=== PATIENT | male | born 1995 | race Caucasian/White ===

== ENCOUNTER 2017-09-06 17:23 | Emergency (ER) | payer MEDICAID, OTHER ==
[~2017-09-06] VITALS: Ht 188 cm; Wt 90.0 kg
[~2017-09-06 17:23] MED LIST: ONDA4TAB6 PO
[2017-09-06 17:33] VITALS: BP 114/61
== END 2017-09-06 22:45 | disposition left against medical advice (07) ==
LOC: ER 17:23
DX: M54.9 Dorsalgia, unspecified (principal); Z53.21 Procedure and treatment not carried out due to patient leaving prior to being seen by health care provider

== ENCOUNTER 2017-11-18 03:37 | Emergency (ER) | payer MEDICAID ==
[~2017-11-18] VITALS: Ht 188 cm; Wt 113.5 kg
[2017-11-18 03:42] VITALS: BP 163/98
[2017-11-18] MEDS ORDERED: CLIN300C3 PO (04:16)
== END 2017-11-18 04:20 | disposition home or self-care (01) ==
LOC: ER 03:38
DX: L73.8 Other specified follicular disorders (principal); F12.10 Cannabis abuse, uncomplicated; F17.200 Nicotine dependence, unspecified, uncomplicated; Z88.2 Allergy status to sulfonamides
CPT/HCPCS: 99283

== ENCOUNTER 2018-04-21 12:09 | Emergency (ER) | payer MEDICAID ==
[~2018-04-21] VITALS: Ht 188 cm; Wt 85.0 kg
[2018-04-21] MEDS ORDERED: normal saline 1000ML IV soln IVB ONE ×2 (12:50)
[2018-04-21] MEDS ORDERED: ondansetron/PF 4mg/2ml inj IV ONE (12:50)
[2018-04-21 13:24] LABS: ALANINE AMINOTRANSFERASE 43 U/L (12-78); ALBUMIN 4.2 G/DL (3.4-5.0); ALBUMIN/GLOBULIN RATIO 1.1 (1.1-1.5); ALKALINE PHOSPHATASE 75 IU/L (46-116); ANION GAP 10 (8-16); ASPARTATE AMINO TRANSFERASE 27 U/L (10-37); BILIRUBIN,TOTAL 0.6 MG/DL (0.1-1.0); BLOOD UREA NITROGEN 12 MG/DL (7-18); BUN/CREATININE RATIO 10.8 (5.4-32.0); CHLORIDE 101 MMOL/L (99-107); CREATININE 1.11 MG/DL (0.60-1.10); GLUCOSE 97 MG/DL (70-104); LIPASE 69 U/L (73-393); POTASSIUM 3.7 MMOL/L (3.5-5.1); SODIUM 137 MMOL/L (135-145); TOTAL CARBON DIOXIDE 25.8 MMOL/L (24-32); eGFR 82 ML/MIN
[2018-04-21] MEDS ORDERED: morphine 2 MG/ML inj. syringe IV ONE (13:35)
[2018-04-21 13:38] LABS: BASOPHILS # (AUTO) 0.1 X10'3 (0-0.2); BASOPHILS % (AUTO) 0.4 % (0-1); EOSINOPHILS # (AUTO) 0.2 X10'3 (0-0.9); HEMATOCRIT 47.9 % (42.0-52.0); HEMOGLOBIN 16.3 g/dl (14.0-17.9); LYMPHOCYTES # (AUTO) 0.9 X10'3 (1.1-4.8); LYMPHOCYTES % (AUTO) 7.1 % (21-51); MEAN CORPUSCULAR HEMOGLOBIN 29.4 PG (27.0-31.0); MEAN CORPUSCULAR VOLUME 86.4 FL (78-98); MEAN PLATELET VOLUME 8.9 FL (7.4-10.4); MONOCYTES # (AUTO) 0.8 X10'3 (0-0.9); MONOCYTES % (AUTO) 6.2 % (2-12); NEUTROPHILS # (AUTO) 10.3 X10'3 (1.8-7.7); NEUTROPHILS % (AUTO) 84.3 % (42-75); PLATELET COUNT 272 X10'3 (140-440); RED BLOOD COUNT 5.54 X10'6 (4.70-6.10); RED CELL DISTRIBUTION WIDTH 12.6 % (11.5-14.5); WHITE BLOOD COUNT 12.2 X10'3 (4.5-11.0)
[2018-04-21 14:03] LABS: PLATELET ESTIMATE NORMAL; TOTAL CELLS COUNTED 100
[2018-04-21] MEDS ORDERED: PANT-47 PO (14:41)
[2018-04-21] MEDS ORDERED: ONDA8TAB13 PO (14:41)
[2018-04-21 14:49] VITALS: BP 133/75
== END 2018-04-21 14:55 | disposition home or self-care (01) ==
LOC: ER 12:09
DX: R11.10 Vomiting, unspecified (principal); R10.13 Epigastric pain; R10.11 Right upper quadrant pain; R10.12 Left upper quadrant pain; F12.90 Cannabis use, unspecified, uncomplicated; Z88.2 Allergy status to sulfonamides; Z79.899 Other long term (current) drug therapy
CPT/HCPCS: 36415; 80053; 83690; 85025; 96361; 96374; 96375; 99284; J2270; J2405

== ENCOUNTER 2019-09-12 10:58 | Emergency (ER) | payer OTHER ==
[~2019-09-12] VITALS: Ht 190.5 cm; Wt 105.2 kg
[~2019-09-12 10:58] MED LIST changes: +CYCL-1 PO; +ONDA8TAB13 PO; +PANT-47 PO
[2019-09-12 11:39] VITALS: BP 142/77
[2019-09-12] MEDS ORDERED: cephalexin 250mg capsule PO ONE (13:30)
[2019-09-12] MEDS ORDERED: IBUP-1984 PO (13:43)
[2019-09-12] MEDS ORDERED: CEPH500C5 PO (13:43)
== END 2019-09-12 14:10 | disposition home or self-care (01) ==
LOC: ER 10:58
DX: S62.316A Displaced fracture of base of fifth metacarpal bone, right hand, initial encounter for closed fracture (principal); F12.90 Cannabis use, unspecified, uncomplicated; Z79.899 Other long term (current) drug therapy; W22.01XA Walked into wall, initial encounter; Y93.89 Activity, other specified; Y92.89 Other specified places as the place of occurrence of the external cause; Y99.8 Other external cause status
CPT/HCPCS: 29125; 73130; 99283